=== PATIENT | male | born 1980 | race Caucasian/White ===

== ENCOUNTER 2021-05-11 10:53 | Emergency (ER) | payer MEDICAID, BC ==
[~2021-05-11] VITALS: Ht 185.4 cm; Wt 89.8 kg
[~2021-05-11 10:53] MED LIST: CARI-277; TEMA15CA
[2021-05-11 13:27] LABS: Alcohol, Urine < 3.0 mg/dL (0-10); Amphetamine Screen, Urine POSITIVE (NEGATIVE); Barbiturate Scree,Urine NEGATIVE (NEGATIVE); Benzodiazephine Screen, Urine NEGATIVE (NEGATIVE); Cannabinoid Screen, Urine POSITIVE (NEGATIVE); Cocaine Screen, Urine NEGATIVE (NEGATIVE); Phencyclidine Screen, Urine NEGATIVE (NEGATIVE); Urine Bacteria NONE SEEN /hpf (None Seen); Urine Blood Negative /uL (Negative); Urine Mucus FEW (None Seen); Urine WBC 2 /hpf (0 - 3)
[2021-05-11 13:34] LABS: Opiate Scree,Urine NEGATIVE (NEGATIVE)
[2021-05-11 14:07] LABS: Basophils # (auto) 0 10 ^3/uL (0-0.2); Basophils % (auto) 0.4 % (0.0-2.0); Eosinophils # (auto) 0.1 10 ^3/uL (0-0.8); Eosinophils % (auto) 1.1 % (0.0-7.0); Hematocrit 42.5 % (41.0-53.0); Hemoglobin 14.3 g/dL (13.5-17.5); Lymphocytes # (auto) 1.6 10 ^3/uL (0.4-5.4); Lymphocytes % (auto) 19.7 % (10.0-50.0); Mean Corpuscular Hemoglobin 28.6 pg (28.0-32.0); Mean Corpuscular Hgb Conc. 33.7 g/dL (32.0-36.0); Mean Corpuscular Volume 84.9 fL (80.0-100.0); Monocytes # (auto) 0.6 10 ^3/uL (0-1.3); Monocytes % (auto) 7.9 % (0.0-12.0); Neutrophils # (auto) 5.8 10 ^3/uL (1.6-8.6); Neutrophils % (auto) 70.9 % (37.0-80.0); Nucleated Red Blood Cells % 0.1 %; Red Blood Cells 5.01 10^6/uL (4.5-5.90); White Blood Cell 8.1 10^3/uL (4.4-10.8)
[2021-05-11 14:29] LABS: Albumin 3.2 g/dL (3.4-5.0); BUN/Creatinine Ratio 8.9; Calcium 9.3 mg/dL (8.5-10.1); Potassium 3.9 mmol/L (3.5-5.1)
[2021-05-11 14:31] LABS: Bilirubin, Total 0.3 mg/dL (0.2-1.0); Total Protein 6.6 g/dL (6.4-8.2)
[2021-05-11 16:06] VITALS: BP 126/73
== END 2021-05-11 14:34 | disposition home or self-care (01) ==
LOC: ER 10:53
DX: S50.811A Abrasion of right forearm, initial encounter (principal); F15.10 Other stimulant abuse, uncomplicated; Z90.49 Acquired absence of other specified parts of digestive tract; Z79.899 Other long term (current) drug therapy; X58.XXXA Exposure to other specified factors, initial encounter; Y93.89 Activity, other specified; Y92.89 Other specified places as the place of occurrence of the external cause; Y99.8 Other external cause status
CPT/HCPCS: 36415; 80053; 80307; 81001; 85025

== ENCOUNTER 2023-09-18 22:05 | Emergency (ER) | payer MEDICAID ==
[~2023-09-18] VITALS: Ht 185.4 cm; Wt 80.0 kg
[~2023-09-18 22:05] MED LIST changes: +ACET500T58 PO; +ONDA-144 PO
[2023-09-19 03:14] VITALS: BP 132/96; PULSE 70; RESP 18; TEMP 98.2; O2SAT 98
== END 2023-09-19 03:40 | disposition home or self-care (01) ==
LOC: ER 22:05
DX: S62.316A Displaced fracture of base of fifth metacarpal bone, right hand, initial encounter for closed fracture (principal); F17.210 Nicotine dependence, cigarettes, uncomplicated; F15.10 Other stimulant abuse, uncomplicated; F11.10 Opioid abuse, uncomplicated; Z59.00 Homelessness unspecified; W51.XXXA Accidental striking against or bumped into by another person, initial encounter; Y93.89 Activity, other specified; Y92.89 Other specified places as the place of occurrence of the external cause; Y99.8 Other external cause status
CPT/HCPCS: 29125; 73130

== ENCOUNTER 2024-02-19 20:44 | Emergency (ER) | payer MEDICAID ==
[~2024-02-19] VITALS: Ht 182.9 cm; Wt 68.0 kg
[2024-02-19 20:58] VITALS: BP 124/94; PULSE 106; RESP 16; TEMP 99.1; O2SAT 98
[2024-02-19] MEDS ORDERED: AMOX875T4 PO (22:42)
[2024-02-19] MEDS ORDERED: IBUP-1456 PO (22:42)
[2024-02-19] MEDS ORDERED: CIPR500T4 PO (22:48)
== END 2024-02-19 22:20 | disposition home or self-care (01) ==
LOC: ER 20:44
DX: S00.431A Contusion of right ear, initial encounter (principal); F17.210 Nicotine dependence, cigarettes, uncomplicated; F15.90 Other stimulant use, unspecified, uncomplicated; Z98.890 Other specified postprocedural states; Z59.00 Homelessness unspecified; Z79.899 Other long term (current) drug therapy; X58.XXXA Exposure to other specified factors, initial encounter; Y93.89 Activity, other specified; Y92.89 Other specified places as the place of occurrence of the external cause; Y99.8 Other external cause status
CPT/HCPCS: 10140